=== PATIENT | female | born 1995 | race Two or more races ===

== ENCOUNTER 2019-07-10 17:12 | Emergency (ER) | payer MEDICAID ==
[~2019-07-10] VITALS: Ht 160 cm; Wt 79.4 kg
--- NOTE | 2019-07-10 17:19 | NUR ---
ED Nurse Note: Pt brought in by ambulance [id number] from home c/o possible alcohol withdrawal. Pt says she hasn't had a drink for 24 hours and is worried she is going to go into withdrawal. She also says she is having a "mental breakdown." She is c/o of Left ankle pain d/t surgery from unkown date. Respirations are even and unlabored on room air. Patient on monitor.
[2019-07-10 17:20] VITALS: BP 121/55
--- NOTE | 2019-07-10 17:34 | Emergency Room Report ---
History of Present Illness General Chief Complaint: General Complaint Source: Patient, EMS Present Illness HPI Patient is a 23-year-old female presents after increased agitation. She reports having prior history of alcohol abuse. She states that she had not been drinking alcohol for the past 2 days. She states she previously been taking Zyprexa but did not take her evening dose. She had recently been seen at [facility] and had been given refills of her medication. She denies any current suicidal thoughts. She states that she occasionally has auditory hallucinations but does not have any current auditory hallucinations that she can understand. Allergies: Coded Allergies: No Known Allergies (Unverified , 07/10/19) Patient History Past Medical History: see triage record Reviewed Nursing Documentation: PMH: Agreed; PSxH: Agreed Review of Systems All Other Systems: negative except mentioned in HPI Physical Exam Vital Signs Date Time Temp Pulse Resp B/P (MAP) Pulse Ox O2 Delivery O2 Flow Rate FiO2 07/10/19 17:07 98.4 119 19 123/73 (90) 99 Room Air Sp02 EP Interpretation: reviewed, normal General Appearance: normal inspection, well appearing, no apparent distress, alert, GCS 15 Head: atraumatic ENT: normal ENT inspection, hearing grossly normal, normal voice Neck: normal inspection, full range of motion, supple, no bony tend Respiratory: normal inspection, lungs clear, normal breath sounds, no respiratory distress, no retraction, no wheezing Cardiovascular #1: regular rate, rhythm, no edema Gastrointestinal: normal inspection, normal bowel sounds, non tender, soft, no guarding, no hernia Genitourinary: no CVA tenderness Musculoskeletal: normal inspection, back normal, normal range of motion Neurologic: alert, motor strength/tone normal, global compensation manager III-XII nml as tested, oriented x3, responsive, speech normal, normal inspection Psychiatric: normal inspection, judgement/insight normal, mood/affect normal Medical Decision Making Diagnostic Impression: Primary Impression: Substance abuse Additional Impression: Alcohol withdrawal ER Course Patient presented for increased agitation. Differential diagnosis include was not limited to alcohol withdrawal, psychosis, substance abuse among others. Because of complexity of patient's case laboratory tests were ordered. The patient was noted to have normal heart rate. She was given oral Ativan due to a likely history of alcohol withdrawal. She does not appear to be any acute distress or tremulous at this time. Patient's laboratory testing was unremarkable. Patient states she felt better after receiving Ativan. Patient was discharged home. She was advised to follow-up with outpatient mental health. Patient was advised to return if she felt worse. This medical record is generated with [employer] space studies faculty member software. There may be some space studies faculty member discrepancies related to use of this software Labs Test 07/10/19 18:20 White Blood Count 8.6 K/UL (4.8-10.8) Red Blood Count 3.99 M/UL (4.20-5.40) Hemoglobin 10.9 G/DL (12.0-16.0) Hematocrit 34.4 % (37.0-47.0) Mean Corpuscular Volume 86 FL (80-99) Mean Corpuscular Hemoglobin 27.5 PG (27.0-31.0) Mean Corpuscular Hemoglobin Concent 31.8 G/DL (32.0-36.0) Red Cell Distribution Width 18.0 % (11.6-14.8) Platelet Count 264 K/UL (150-450) Mean Platelet Volume 6.1 FL (6.5-10.1) Neutrophils (%) (Auto) 60.5 % (45.0-75.0) Lymphocytes (%) (Auto) 30.5 % (20.0-45.0) Monocytes (%) (Auto) 7.8 % (1.0-10.0) Eosinophils (%) (Auto) 0.7 % (0.0-3.0) Basophils (%) (Auto) 0.6 % (0.0-2.0) Urine Color Pale yellow Urine Appearance Slightly cloudy Urine pH 7 (4.5-8.0) Urine Specific [place] 1.010 (1.005-1.035) Urine Protein Negative (NEGATIVE) Urine Glucose (UA) Negative (NEGATIVE) Urine Ketones Negative (NEGATIVE) Urine Blood Negative (NEGATIVE) Urine Nitrite Negative (NEGATIVE) Urine Bilirubin Negative (NEGATIVE) Urine Urobilinogen Normal MG/DL (0.0-1.0) Urine Leukocyte Esterase 1+ (NEGATIVE) Urine RBC 0-2 /HPF (0 - 2) Urine WBC 2-4 /HPF (0 - 2) Urine Squamous Epithelial Cells Moderate /LPF (NONE/OCC) Urine Bacteria Few /HPF (NONE) Urine HCG, Qualitative Negative (NEGATIVE) Sodium Level 140 MMOL/L (136-145) Potassium Level 3.6 MMOL/L (3.5-5.1) Chloride Level 105 MMOL/L (98-107) Carbon Dioxide Level 28 MMOL/L (21-32) Anion Gap 7 mmol/L (5-15) Blood Urea Nitrogen 8 mg/dL (7-18) Creatinine 0.5 MG/DL (0.55-1.30) Estimat Glomerular Filtration Rate > 60 mL/min (>60) Glucose Level 97 MG/DL (74-106) Calcium Level 8.3 MG/DL (8.5-10.1) Total Bilirubin 0.3 MG/DL (0.2-1.0) Aspartate Amino Transf (AST/SGOT) 68 U/L (15-37) Alanine Aminotransferase (ALT/SGPT) 142 U/L (12-78) Alkaline Phosphatase 122 U/L (46-116) Total Protein 7.2 G/DL (6.4-8.2) Albumin 3.3 G/DL (3.4-5.0) Globulin 3.9 g/dL Albumin/Globulin Ratio 0.8 (1.0-2.7) Salicylates Level 1.6 ug/mL (2.8-20) Urine Opiates Screen Negative (NEGATIVE) Acetaminophen Level < 2 MCG/ML (10-30) Urine Barbiturates Screen Negative (NEGATIVE) Phencyclidine (PCP) Screen Negative (NEGATIVE) Urine Amphetamines Screen Negative (NEGATIVE) Urine Benzodiazepines Screen Positive (NEGATIVE) Urine Cocaine Screen Negative (NEGATIVE) Urine Marijuana (THC) Screen Positive (NEGATIVE) Last Vital Signs Date Time Temp Pulse Resp B/P (MAP) Pulse Ox O2 Delivery O2 Flow Rate FiO2 07/10/19 17:07 98.4 119 19 123/73 (90) 99 Room Air Status: improved Disposition: HOME, SELF-CARE Condition: Stable Smith Edge MD Jul 10, 2019 17:34
[2019-07-10] MEDS ORDERED: LORazepam 1mg tab ORAL ONE (17:45)
[2019-07-10 18:31] LABS: BASOPHILS % (AUTO) 0.6 % (0.0-2.0); EOSINOPHILS % (AUTO) 0.7 % (0.0-3.0); HEMATOCRIT 34.4 % (37.0-47.0); HEMOGLOBIN 10.9 G/DL (12.0-16.0); LYMPHOCYTES % (AUTO) 30.5 % (20.0-45.0); MEAN CORPUSCULAR VOLUME 86 FL (80-99); MONOCYTES % (AUTO) 7.8 % (1.0-10.0); NEUTROPHILS % (AUTO) 60.5 % (45.0-75.0); PLATELET COUNT 264 K/UL (150-450); RED BLOOD COUNT 3.99 M/UL (4.20-5.40); WHITE BLOOD COUNT 8.6 K/UL (4.8-10.8)
[2019-07-10 18:35] LABS: APPEARANCE,URINE SLIGHTLY CLOUDY; BILIRUBIN, URINE NEGATIVE (NEGATIVE); COLOR,URINE PALE YELLOW; GLUCOSE, URINE (UA) NEGATIVE (NEGATIVE); KETONES,URINE NEGATIVE (NEGATIVE); LEUKOCYTE ESTERASE ,URINE 1+ (NEGATIVE); NITRITE,URINE NEGATIVE (NEGATIVE); PH,URINE 7 (4.5-8.0); PROTEIN,URINE NEGATIVE (NEGATIVE); UROBILINOGEN,URINE NORMAL MG/DL (0.0-1.0)
[2019-07-10 18:41] LABS: ANION GAP 7 mmol/L (5-15); BLOOD UREA NITROGEN 8 mg/dL (7-18); CALCIUM 8.3 MG/DL (8.5-10.1); CARBON DIOXIDE 28 MMOL/L (21-32); CHLORIDE 105 MMOL/L (98-107); CREATININE 0.5 MG/DL (0.55-1.30); POTASSIUM 3.6 MMOL/L (3.5-5.1); SODIUM 140 MMOL/L (136-145)
[2019-07-10 18:52] LABS: ALANINE AMINOTRANSFERASE 142 U/L (12-78); ALBUMIN 3.3 G/DL (3.4-5.0); ALBUMIN/GLOBULIN RATIO 0.8 (1.0-2.7); ALKALINE PHOSPHATASE 122 U/L (46-116); ASPARTATE AMINO TRANSFERASE 68 U/L (15-37); BILIRUBIN,TOTAL 0.3 MG/DL (0.2-1.0)
--- NOTE | 2019-07-10 19:10 | NUR ---
ED Nurse Note: Report given to Jez Hutchinson RN. Pt in stable condition. Plan of care endorsed.
--- NOTE | 2019-07-10 19:10 | NUR ---
ED Nurse Note: Report given to Jez Hutchinson RN. Pt in stable condition. Consent signed for surgery. Plan of care endorsed. Addendum: 07/11/19 at 0945 by HALLIE Incorrect Patient*
--- NOTE | 2019-07-10 19:15 | NUR ---
ED Nurse Note: No plan for surgery for patient. Confirmed with doctor, no surgery.
--- NOTE | 2019-07-10 19:20 | NUR ---
ED Nurse Note: ERMD at bedside.
--- NOTE | 2019-07-10 19:23 | NUR ---
ED Nurse Note: Received report from Lou YARBROUGH
[2019-07-10 19:24] VITALS: BP 118/64
[2019-07-10 20:07] VITALS: BP 128/74
--- NOTE | 2019-07-10 20:34 | NUR ---
ED Nurse Note: Patient is calm and sleeping in bed. VSS, NAD.
[2019-07-10 22:30] VITALS: BP 118/64
--- NOTE | 2019-07-10 22:30 | NUR ---
ER DISCHARGE NOTE: Patient is cleared to be discharged per ERMD, pt is aox4, on room air, with stable vital signs. pt was given dc instructions, pt was able to verbalize understanding, pt id band removed without complications. pt is able to ambulate with steady gait. pt took all belongings.
== END 2019-07-10 22:30 | disposition home or self-care (01) ==
LOC: EDBD 17:12 → EMR 18:03
DX: F12.10 Cannabis abuse, uncomplicated (principal); F13.10 Sedative, hypnotic or anxiolytic abuse, uncomplicated; F10.239 Alcohol dependence with withdrawal, unspecified; Y90.9 Presence of alcohol in blood, level not specified
CPT/HCPCS: 36415; 80053; 80307; 81003; 81025; 85025; G0480; G0481; Z7502; 99283